=== PATIENT | male | born 1990 | race Caucasian/White ===

== ENCOUNTER 2017-01-28 20:48 | Emergency (ER) | payer OTHER ==
[~2017-01-28] VITALS: Ht 190.5 cm; Wt 79.4 kg
--- NOTE | ~2017-01-28 | CR2 ---
[facility] A Service of [facility] RADIOLOGY TEXT RESULTS PATIENT: ANTON OWENS LOCATION: SED : [birth year] UNIT #: [id number] AGE: [address]: Nazanin Shaw SEX: M ORDER DR: [id number] [address] [address] [id number] MR#: [id number] Acc #: [id number] NAME: ANTON OWENS : 1990 SEX: M STUDY DATE/TIME: 01/28/2017 21:42 UNIT: SED ROOM: STUDY DESCRIPTION: CR Abdomen Acute Series Attending Physician: Nazanin Shaw Pa-C Ordering Physician: Nazanin Shaw Pa-C Primary Care Physician: Jakub Cavanaugh Jr., M.D. MEDICAL IMAGING REPORT This report is preliminary unless electronic signature is present. EXAM Acute abdominal series dated 01/28/17 COMPARISON: Chest two views dated 07/13/09 HISTORY Sharp abdominal pain today, vomiting occasionally. FINDINGS Frontal view of the chest was obtained. Lungs are well aerated. S-shaped scoliosis of the thoracolumbar spine is noted with a dextrothoracic and a levolumbar component. Lungs and heart are unremarkable. Three images of the abdomen and pelvis were obtained. There is nonspecific, nonobstructive bowel gas pattern with mild stool burden in the hepatic flexure and adjacent right colon. No free intraperitoneal air, calcifications to suggest gallstones or urinary stones. IMPRESSION 1. No acute cardiopulmonary disease. 2. No obvious acute abdominal abnormality. There is mild stool burden in the hepatic flexure and right colon. 3. S-shaped scoliosis of the thoracolumbar spine is seen. Dictated by... Ani Grigsby M.D. THIS IS AN ELECTRONICALLY VERIFIED REPORT Ani Grigsby M.D. at 01/29/2017 7:34 PM CPR/cmm [facility] A Service of [facility] RADIOLOGY TEXT RESULTS PATIENT: ANTON OWENS LOCATION: SED : [birth year] UNIT #: [id number] AGE: [address]: Nazanin Shaw SEX: M ORDER DR: TD: 01/29/2017 09:31 JOB #: [id number] MEDICAL IMAGING REPORT Page 1 of 1
[~2017-01-28 20:48] MED LIST: AUGMENTIN PO; BACTRIM DS TABL1 TA1 PO; IBUPROFEN IN40 MG/ML PO; IBUPROFEN PO; LORTAB 5/500 TA1 TA1 PO; LORTAB 7.5-5001 TAB PO; NO MEDICATIONS; PEPCID AC20 MG PO; PHENERGAN25 MG PO
[2017-01-28 22:02] LABS: BASOPHIL% 0.5 % (0-2.5); EOSINOPHIL# 0.1 X10e3 (0-0.7); EOSINOPHIL% 0.9 % (0.0-7.0); HEMATOCRIT 48.1 % (38.0-50.0); HEMOGLOBIN 16.8 gm/dL (13.0-16.0); LYMPHOCYTE# 2.2 X10e3 (1.0-3.5); LYMPHOCYTE% 26.3 % (17.0-45.0); MEAN CELL VOLUME 96.1 FL (83-96); MEAN CORPUSCULAR HEMOGLOBIN 33.5 PG (28-34); MEAN CORPUSCULAR HGB CONC 34.8 g/dL (30-36); MEAN PLATELET VOLUME 6.8 FL (6.5-11.5); MONOCYTE# 0.6 X10e3 (0-1.0); MONOCYTE% 6.9 % (3.0-12.0); NEUTROPHIL# 5.4 X10e3 (1.5-7.1); NEUTROPHIL% 65.4 % (40-75); PLATELET COUNT 240 X10e3 (140-420); RED CELL DISTRIBUTION WIDTH 12.1 % (11.0-15.5); WHITE BLOOD COUNT 8.3 X10e3 (4.0-10.5)
[2017-01-28 22:05] LABS: DIFF IND NO
[2017-01-28 22:16] LABS: ALBUMIN SERUM 4.5 g/dL (3.5-5.0); ALKALINE PHOSPHATASE 55 U/L (32-92); ALT (SGPT) 13 U/L (10-40); AST (SGOT) 18 U/L (10-42); BILIRUBIN, DIRECT <0.1 mg/dL (0.0-0.2); BILIRUBIN,INDIRECT 0.3 mg/dL (0.0-0.9); BILIRUBIN,TOTAL 0.4 mg/dL (0.2-2.0); BLOOD UREA NITROGEN 17 mg/dL (9-23); BUN/CREATININE RATIO 15.45; CALCIUM SERUM 9.3 mg/dL (8.4-10.2); CARBON DIOXIDE 28 mmol/L (22-31); CHLORIDE 108 mmol/L (100-111); CREATININE SERUM 1.1 mg/dL (0.6-1.4); GLOM FILT RATE Estimated 92.2 mL/min (>60); GLUCOSE FASTING 69 mg/dL (70-110); PROTEIN TOTAL SERUM 6.7 g/dL (6.0-8.3); SODIUM 142 mmol/L (135-145)
[2017-01-28] MEDS ORDERED: ZOFRAN ODT4 MG PO (23:11)
== END 2017-01-28 23:19 | disposition home or self-care (01) ==
LOC: SED 20:48
PROVIDERS: Physician Assistant
DX: R10.84 Generalized abdominal pain (principal); Z98.890 Other specified postprocedural states; F17.200 Nicotine dependence, unspecified, uncomplicated
CPT/HCPCS: 36415; 74022; 80048; 80076; 85025; 99284